=== PATIENT | female | born 1950 | race African-American/Black ===

== ENCOUNTER 2020-08-27 10:20 | Outpatient (REF) | payer MEDICARE, OTHER, SELFPAY ==
--- NOTE | ~2020-08-27 | MR_ITS ---
EXAMINATION: MR KNEE WITHOUT CONTRAST, LEFT CLINICAL INFORMATION: Unstable knee. Evaluate for ACL and meniscal tear. COMPARISON: None. TECHNIQUE: MRI of the knee without contrast was performed using routine sequences on a high-field scanner. FINDINGS: MENISCI: Medial Meniscus: Question subtle irregularity along the periphery of the tibial articular surface of the posterior horn. There also may be a small partially detached meniscal fragment at the junction of the posterior horn and posterior root. See sagittal image 15 series 3. Lateral Meniscus: Intact. LIGAMENTS: Cruciate: Intact. Collateral: Intact. EXTENSOR MECHANISM: Intact. ARTICULAR CARTILAGE/BONE: Patellofemoral Compartment: There is a focal area of nonuniform up to high-grade cartilage loss with subchondral cystic change in the median ridge of the proximal patella over an area measuring approximately 15 x 10 mm. High-grade cartilage loss with subchondral cystic change and some central osteophyte formation along the distal lateral trochlea over an area measuring 16 mm craniocaudal and 15 mm transverse. Overall moderate patellofemoral arthrosis. Medial Compartment: Small marginal osteophytes. Cartilage grossly intact. Overall mild arthrosis. Lateral Compartment: Small marginal osteophytes. Cartilage grossly intact. Overall mild arthrosis. JOINT FLUID AND BURSAE: Normal. MR/MR knee LT wo con IMPRESSION: Possible peripheral tear of the posterior horn of the medial meniscus with small partially detached meniscal fragment. Moderate osteoarthritis of the patellofemoral compartment. Mild osteoarthritis of the medial and lateral compartments.
== END 2020-08-27 10:21 | disposition home or self-care (01) ==
LOC: HO.MRI 10:20
PROVIDERS: PCP Internal Medicine; Visit Provider Psychiatry & Neurology Neurology
DX: G35 Multiple sclerosis (principal)
CPT/HCPCS: 73721

== ENCOUNTER 2023-03-13 11:51 | Outpatient (REF) | payer MEDICARE, OTHER, SELFPAY ==
[2023-03-14 04:19] LABS: HBS Num1 6.41 mIU/mL (0-7.99); HBc Num1 0.09 S/CO (0.00-0.79); HBsAGNum1 0.34 S/CO (0.00-0.99); Hepatitis B Core Antibody Nonreactive (Nonreactive); Hepatitis B Surface Antigen Negative (Negative); ~Hepatitis B Surface Antibody NONREACTIVE (Nonreactive)
[2023-03-15 15:48] LABS: TS Negative Control Passed; TS Panel A 0; TS Panel B 1; TS Positive Control Passed; TSpotTB Negative (Negative)
== END 2023-03-13 11:52 | disposition home or self-care (01) ==
LOC: HO.LAB 11:51
PROVIDERS: PCP Internal Medicine; Visit Provider Psychiatry & Neurology Neurology
DX: Z11.1 Encounter for screening for respiratory tuberculosis (principal); G35 Multiple sclerosis
CPT/HCPCS: 36415; 86481; 86704; 86706; 87340